=== PATIENT | male | born 1935 | race Caucasian/White ===

== ENCOUNTER 2018-03-10 14:49 | Inpatient (IN) | payer OTHER, BC ==
[2018-03-10 15:16] LABS: ADD MAN DIFF? NO
[2018-03-10 15:17] LABS: BASOPHILS % 0.7 % (0.0-2.0); EOSINOPHILS # 0.2 10^3/ul (0.0-0.5); EOSINOPHILS % 3.3 % (0.0-7.0); HEMATOCRIT 45.3 % (42.0-52.0); HEMOGLOBIN 14.9 g/dl (14.0-18.0); LYMPHOCYTES # 1.8 10^3/ul (0.8-2.9); LYMPHOCYTES % 29.6 % (15.0-51.0); MEAN CORPUSCULAR HEMOGLOBIN 30.4 pg (29.0-33.0); MEAN CORPUSCULAR HGB CONC 32.9 g/dl (32.0-37.0); MEAN CORPUSCULAR VOLUME 92.4 fl (82.0-101.0); MONOCYTE # 0.5 10^3/ul (0.3-0.9); MONOCYTES % 8.8 % (0.0-11.0); NEUTROPHIL # 3.4 10^3/ul (1.6-7.5); NEUTROPHILS % 56.3 % (39.0-77.0); PLATELET COUNT 169 10^3/UL (140-415); RED CELL DISTRIBUTION WIDTH 12.9 % (11.5-14.5)
[2018-03-10 15:46] LABS: INR 1.04; PARTIAL THROMBOPLASTIN TIME 28.9 Sec (25.0-35.0); PROTIME 13.7 Sec (11.9-14.9); PT RATIO 1.1
[2018-03-10 15:48] LABS: ANION GAP 12 (8-16); BLOOD UREA NITROGEN 10 mg/dl (7-20); CARBON DIOXIDE 26 mmol/L (21-31); CHLORIDE 108 mmol/L (97-110); CHOL/HDL RATIO 5.5 RATIO; CHOLESTEROL 210 mg/dl (100-200); CREATININE 0.94 mg/dl (0.61-1.24); GLUCOSE 125 mg/dl (70-220); HDL CHOLESTEROL 38 mg/dl (31-75); LDL CHOLESTEROL,CALCULATED 131 mg/dl; POTASSIUM 3.5 mmol/L (3.5-5.1); SODIUM 142 mmol/L (135-144); TRIGLYCERIDES 204 mg/dl (0-149)
[2018-03-10] MEDS: ONDANSETRON 4 MG INJ IV ×2 (15:58→22:41)
[2018-03-10 16:00] LABS: TROPONIN-I < 0.012 ng/ml (0.000-0.120)
[2018-03-10 16:04] LABS: HEMOGLOBIN A1C 5.2 % (0-5.9)
[2018-03-10] MEDS: ASPIRIN 325 MG TAB PO (17:39)
[2018-03-10] MEDS: CEFTRIAXONE 1 GM/50 ML (PMX) 50 ML IVPB (17:39)
[2018-03-10] MEDS: AZITHROMYCIN 500MG/NS (PMX) 250 ML IV (17:59)
[2018-03-10] MEDS ORDERED: ONDANSETRON 4 MG INJ IV (18:00)
[2018-03-10] MEDS ORDERED: ACETAMINOPHEN 325 MG TAB PO (18:00)
[2018-03-10 18:04] LABS: LACTIC ACID 1.8 mmol/L (0.5-2.0)
[2018-03-10] MEDS ORDERED: ALBUTEROL/IPRATROPIUM (NEB) 3 ML AMP HHN (18:30)
[2018-03-10] MEDS ORDERED: NA PHOSPHATE/BIPHOS 133 ML ENEMA PR (18:30)
[2018-03-10] MEDS ORDERED: hydrALAzine 20 MG INJ IV (18:30)
[2018-03-10] MEDS ORDERED: morphine 2 MG INJ IV (18:30)
[2018-03-10] MEDS ORDERED: NITROGLYCERIN (SL) 0.4 MG TAB SL (18:30)
[2018-03-10] MEDS ORDERED: MAGNESIUM HYDROXIDE 30ML CUP PO (18:30)
[2018-03-10] MEDS ORDERED: HYDROCODONE/APAP (5/325) TAB PO (18:30)
[2018-03-10] MEDS ORDERED: NACL 0.9% 3 ML SYG IV (18:30)
[2018-03-10] MEDS ORDERED: DOCUSATE SODIUM 100 MG CAP PO (18:30)
[2018-03-10] MEDS: LEVOFLOXACIN 750MG/D5W (PMX) 150 ML IVPB (19:41)
[2018-03-10 20:22] LABS: FREE T4 (FREE THYROXINE) 0.88 ng/dl (0.85-1.93)
[2018-03-10 20:31] LABS: LACTIC ACID 1.4 mmol/L (0.5-2.0)
[2018-03-10] MEDS: QUETIAPINE 25 MG TAB PO (21:00)
[2018-03-10] MEDS: HEPARIN 5,000 UNIT/0.5 ML VIAL SC (22:52)
[2018-03-10] MEDS: LORAZEPAM 2 MG INJ IV (22:56)
[2018-03-11] MEDS: LORAZEPAM 2 MG INJ IV (05:10)
[2018-03-11] MEDS: PANTOPRAZOLE (EC) 40 MG TAB PO ×2 (05:14→17:35)
[2018-03-11 06:30] LABS: ADD MAN DIFF? NO
[2018-03-11 06:35] LABS: WHITE BLOOD COUNT 8.8 10^3/ul (4.8-10.8)
[2018-03-11 06:36] LABS: BASOPHILS % 0.2 % (0.0-2.0); EOSINOPHILS % 0.1 % (0.0-7.0); HEMATOCRIT 42.5 % (42.0-52.0); HEMOGLOBIN 14.1 g/dl (14.0-18.0); LYMPHOCYTES # 0.9 10^3/ul (0.8-2.9); LYMPHOCYTES % 9.9 % (15.0-51.0); MEAN CORPUSCULAR HEMOGLOBIN 30.7 pg (29.0-33.0); MEAN CORPUSCULAR HGB CONC 33.2 g/dl (32.0-37.0); MEAN CORPUSCULAR VOLUME 92.4 fl (82.0-101.0); MEAN PLATELET VOLUME 11.1 fl (7.4-10.4); MONOCYTE # 0.5 10^3/ul (0.3-0.9); MONOCYTES % 5.9 % (0.0-11.0); NEUTROPHIL # 7.4 10^3/ul (1.6-7.5); NEUTROPHILS % 83.4 % (39.0-77.0); PLATELET COUNT 165 10^3/UL (140-415); RED CELL DISTRIBUTION WIDTH 12.8 % (11.5-14.5)
[2018-03-11 06:55] LABS: ANION GAP 11 (8-16); BLOOD UREA NITROGEN 11 mg/dl (7-20); CALCIUM 9.1 mg/dl (8.4-10.2); CARBON DIOXIDE 27 mmol/L (21-31); CHLORIDE 107 mmol/L (97-110); CREATININE 0.86 mg/dl (0.61-1.24); GLUCOSE 112 mg/dl (70-220); PHOSPHORUS 2.2 mg/dl (2.5-4.9); POTASSIUM 4.5 mmol/L (3.5-5.1); SODIUM 140 mmol/L (135-144)
[2018-03-11 07:31] LABS: CHOL/HDL RATIO 4.6 RATIO; HDL CHOLESTEROL 43 mg/dl (31-75); LDL CHOLESTEROL,CALCULATED 134 mg/dl; TRIGLYCERIDES 110 mg/dl (0-149)
[2018-03-11 07:31] LABS: CHOLESTEROL 199 mg/dl (100-200)
[2018-03-11 08:08] LABS: HEMOGLOBIN A1C 5.6 % (0-5.9)
[2018-03-11] MEDS: DONEPEZIL 10 MG TAB PO (09:00)
[2018-03-11] MEDS: MEMANTINE 10 MG TAB PO ×2 (09:00→20:02)
[2018-03-11] MEDS: ASPIRIN (EC) 325 MG TAB PO (09:00)
[2018-03-11] MEDS: HEPARIN 5,000 UNIT/0.5 ML VIAL SC ×2 (10:05→20:06)
[2018-03-11] MEDS ORDERED: morphine LIQ (10 MG/5 ML) CUP PO (14:00)
[2018-03-11] MEDS ORDERED: ONDANSETRON 4 MG TAB PO (16:00)
[2018-03-11] MEDS: ONDANSETRON 4 MG INJ IV ×2 (16:18→21:57)
[2018-03-11] MEDS: LEVOFLOXACIN 750MG/D5W (PMX) 150 ML IVPB (19:58)
[2018-03-11] MEDS: ARTIFICIAL TEARS 15 ML OPH BOTH EYES (19:58)
[2018-03-11] MEDS: ACETAMINOPHEN 325 MG TAB PO (19:59)
[2018-03-11] MEDS: QUETIAPINE 25 MG TAB PO (20:02)
[2018-03-12] MEDS: PANTOPRAZOLE (EC) 40 MG TAB PO ×2 (05:47→05:58)
[2018-03-12] MEDS: DONEPEZIL 10 MG TAB PO ×2 (09:00→11:03)
[2018-03-12] MEDS: MEMANTINE 10 MG TAB PO ×3 (09:00→20:26)
[2018-03-12] MEDS: ASPIRIN (EC) 325 MG TAB PO ×2 (09:00→11:03)
[2018-03-12] MEDS: HEPARIN 5,000 UNIT/0.5 ML VIAL SC ×2 (09:02→20:44)
[2018-03-12 11:12] LABS: ADD MAN DIFF? NO
[2018-03-12 11:16] LABS: BASOPHILS % 0.4 % (0.0-2.0); EOSINOPHILS # 0.1 10^3/ul (0.0-0.5); EOSINOPHILS % 1.2 % (0.0-7.0); HEMATOCRIT 45.5 % (42.0-52.0); HEMOGLOBIN 14.9 g/dl (14.0-18.0); LYMPHOCYTES # 1.5 10^3/ul (0.8-2.9); LYMPHOCYTES % 21.3 % (15.0-51.0); MEAN CORPUSCULAR HEMOGLOBIN 30.6 pg (29.0-33.0); MEAN CORPUSCULAR HGB CONC 32.7 g/dl (32.0-37.0); MEAN CORPUSCULAR VOLUME 93.4 fl (82.0-101.0); MEAN PLATELET VOLUME 11.4 fl (7.4-10.4); MONOCYTE # 0.6 10^3/ul (0.3-0.9); MONOCYTES % 8.5 % (0.0-11.0); NEUTROPHIL # 4.7 10^3/ul (1.6-7.5); NEUTROPHILS % 68.2 % (39.0-77.0); PLATELET COUNT 163 10^3/UL (140-415); RED BLOOD COUNT 4.87 10^6/ul (4.70-6.10); RED CELL DISTRIBUTION WIDTH 13.1 % (11.5-14.5)
[2018-03-12 11:16] LABS: WHITE BLOOD COUNT 6.9 10^3/ul (4.8-10.8)
[2018-03-12 12:01] LABS: ANION GAP 10 (8-16); BLOOD UREA NITROGEN 9 mg/dl (7-20); CALCIUM 9.6 mg/dl (8.4-10.2); CARBON DIOXIDE 30 mmol/L (21-31); CHLORIDE 108 mmol/L (97-110); CREATININE 0.91 mg/dl (0.61-1.24); GLUCOSE 92 mg/dl (70-220); SODIUM 144 mmol/L (135-144)
[2018-03-12] MEDS: LEVOFLOXACIN 750MG/D5W (PMX) 150 ML IVPB (20:25)
[2018-03-12] MEDS: QUETIAPINE 25 MG TAB PO (20:26)
[2018-03-13] MEDS: PANTOPRAZOLE (EC) 40 MG TAB PO (06:36)
[2018-03-13 08:20] LABS: ADD MAN DIFF? NO
[2018-03-13 08:27] LABS: BASOPHIL # 0.1 10^3/ul (0.0-0.1); BASOPHILS % 0.8 % (0.0-2.0); EOSINOPHILS # 0.1 10^3/ul (0.0-0.5); EOSINOPHILS % 2.3 % (0.0-7.0); HEMATOCRIT 44.8 % (42.0-52.0); HEMOGLOBIN 14.8 g/dl (14.0-18.0); LYMPHOCYTES # 1.7 10^3/ul (0.8-2.9); LYMPHOCYTES % 28.4 % (15.0-51.0); MEAN CORPUSCULAR HEMOGLOBIN 30.7 pg (29.0-33.0); MEAN CORPUSCULAR VOLUME 92.9 fl (82.0-101.0); MEAN PLATELET VOLUME 11.3 fl (7.4-10.4); MONOCYTE # 0.7 10^3/ul (0.3-0.9); MONOCYTES % 11.2 % (0.0-11.0); NEUTROPHIL # 3.4 10^3/ul (1.6-7.5); NEUTROPHILS % 56.8 % (39.0-77.0); PLATELET COUNT 169 10^3/UL (140-415); RED BLOOD COUNT 4.82 10^6/ul (4.70-6.10); RED CELL DISTRIBUTION WIDTH 13.2 % (11.5-14.5)
[2018-03-13 08:43] LABS: ANION GAP 12 (8-16); BLOOD UREA NITROGEN 12 mg/dl (7-20); CALCIUM 9.3 mg/dl (8.4-10.2); CARBON DIOXIDE 27 mmol/L (21-31); CHLORIDE 109 mmol/L (97-110); GLUCOSE 95 mg/dl (70-220); POTASSIUM 3.6 mmol/L (3.5-5.1); SODIUM 144 mmol/L (135-144)
[2018-03-13] MEDS: HEPARIN 5,000 UNIT/0.5 ML VIAL SC (09:50)
[2018-03-13] MEDS: DONEPEZIL 10 MG TAB PO (09:54)
[2018-03-13] MEDS: MEMANTINE 10 MG TAB PO (09:55)
[2018-03-13] MEDS: ASPIRIN (EC) 325 MG TAB PO (09:59)
== END 2018-03-13 17:15 | disposition home health service (06) | DRG 57 ==
LOC: E/R 14:49 → TEL 17:34
DX: G30.9 Alzheimer's disease, unspecified (principal); J98.11 Atelectasis; F02.80 Dementia in other diseases classified elsewhere, unspecified severity, without behavioral disturbance, psychotic disturbance, mood disturbance, and anxiety; R55 Syncope and collapse; R42 Dizziness and giddiness; N40.0 Benign prostatic hyperplasia without lower urinary tract symptoms; K21.9 Gastro-esophageal reflux disease without esophagitis; Z91.81 History of falling
CPT/HCPCS: 36415; 70450; 70551; 71045; 80048; 80061; 83036; 83605; 83735; 84100; 84439; 84443; 84484; 85025; 85610; 85730; 87040; 92610; 93005; 93306; 93880; 96365; 96366; 96367; 96372; 96375; 97163; 97165; 99285-25